=== PATIENT | female | born 1995 | race Caucasian/White ===

== ENCOUNTER 2021-04-26 13:45 | Emergency (ER) | payer MEDICAID, SELFPAY ==
[~2021-04-26] VITALS: Ht 162.6 cm; Wt 43.1 kg
[2021-04-26 14:01] VITALS: BP_SYST 125
[2021-04-26 14:37] LABS: BASOPHILS % (AUTO) 0.4 % (0.0-2.0); EOSINOPHILS % (AUTO) 0.1 % (0.0-4.0); HEMATOCRIT 43.5 % (36-48); HEMOGLOBIN 15.5 g/dL (12.0-16.0); LYMPHOCYTES # (AUTO) 1.8 K/uL (1.0-5.5); LYMPHOCYTES % (AUTO) 16.1 % (20.5-51.5); MEAN CORPUSCULAR HEMOGLOBIN 30 pg (27-31); MEAN CORPUSCULAR HGB CONC 36 % (32-36); MEAN CORPUSCULAR VOLUME 85 fL (79.0-98.0); MONOCYTES # (AUTO) 0.8 K/uL (0.0-1.0); MONOCYTES % (AUTO) 7.2 % (1.7-9.3); NEUTROPHILS # (AUTO) 8.6 K/uL (1.8-7.7); NEUTROPHILS % (AUTO) 76.2 % (40.0-70.0); PLATELET COUNT (AUTO) 319 K/uL (130-430); RED BLOOD CELL COUNT(AUTO) 5.13 MIL/uL (4.2-6.2); RED CELL DISTRIBUTION WIDTH 13.6 % (9.0-15.0); WHITE BLOOD COUNT (AUTO) 11.3 K/uL (4.8-10.8)
[2021-04-26 15:07] LABS: CALCIUM 9.1 mg/dL (8.4-11.0); CREATININE 0.62 mg/dL (0.55-1.30)
[2021-04-26 15:13] LABS: ALBUMIN 3.9 g/dL (3.4-4.8); TOTAL BILIRUBIN 2.8 mg/dL (0.0-1.0)
--- NOTE | 2021-04-26 16:16 | NUR ---
Patient to ER bed 03 to gown for evaluation. Side rails up.
[2021-04-26 16:20] LABS: BILIRUBIN,URINE NEGATIVE (NEGATIVE); CLARITY/URINE SL CLOUDY (CLEAR); COLOR,URINE YELLOW (YELLOW); GLUCOSE,URINE NEGATIVE (NEGATIVE); KETONES,URINE 3+ (NEGATIVE); LEUKOCYTE ESTERASE ,URINE 1+ (NEGATIVE); NITRITE, URINE NEGATIVE (NEGATIVE); PROTEIN URINE 1+ (NEGATIVE)
[2021-04-26 16:30] LABS: BLOOD, URINE TRACE (NEGATIVE)
--- NOTE | 2021-04-26 16:56 | NUR ---
PT COMES TO ER WITH C/O PERSISTENT NAUSEA/VOMITTING AND CRAMPING FOR 5 DAYS. REPORTS BEING 8 WEEKS . LMP 02/23/21. STATES SHE WAS ADMITTED TO HOSPITAL ON [facility] FOR HYPEREMESIS GRAVIDARUM AND WAS DISCHARGED WITH [facility] BUT NOT HELPING HER WITH CURRENT NAUSEA. RESP EVEN AND UNLABORED, ON RA @ 98%, HR 118, DRY LIPS NOTED.
[2021-04-26 17:07] LABS: BACTERIA,URINE MODERATE /HPF (None Seen)
--- NOTE | 2021-04-26 18:30 | NUR ---
Dr Suarez evaluating patient at bedside
--- NOTE | 2021-04-26 18:46 | NUR ---
NO ACUTE CHNAGES IN CONDITION,PT INNAD. NO VOMITING WHILE HERE IN ER. ST AT 106, WAITING FOR DISPOSITION.
[2021-04-26] MEDS ORDERED: NACL 0.9% 1,000 ML IV ONE (19:00)
[2021-04-26] MEDS ORDERED: cefTRIAXone 1 GM IVPB PREMIX 50 ML IV ONE (19:00)
--- NOTE | 2021-04-26 19:30 | NUR ---
Pt A&Ox4, VSS, respirations even and unlabored
--- NOTE | 2021-04-26 23:17 | NUR ---
Patient given written and verbal discharge instructions and verbalizes understanding. ER MD discussed with patient the results and treatment provided. Patient in stable condition. ID arm band removed. IV catheter removed intact and dressing applied, no active bleeding. Rx of Keflex, Pyridoxine, Pyridium given. Patient educated on pain management and to follow up with PMD. Pain Scale 3/10. Opportunity for questions provided and answered. Medication side effect fact sheet provided.
== END 2021-04-26 23:17 | disposition home or self-care (01) ==
LOC: SED 13:45
DX: O23.41 Unspecified infection of urinary tract in pregnancy, first trimester (principal); N39.0 Urinary tract infection, site not specified; O21.0 Mild hyperemesis gravidarum; Z3A.08 8 weeks gestation of pregnancy
CPT/HCPCS: 36415; 80053; 81000; 83605; 85025; 87040; 87086; 96365; 99284; J0696